=== PATIENT | female | born 1955 | race African-American/Black ===

== ENCOUNTER 2019-06-27 15:15 | Inpatient (IN) | payer OTHER ==
[2019-06-27 18:18] VITALS: BMI 24.1
--- NOTE | 2019-06-27 19:50 | HP ---
CIWA Score - Admission Criteria [facility] Guidelines: Admission for Medically Managed Detox: Requires at least one of the followin. CIWA greater than 12 2. Seizures within the past 24 hours 3. Delirium tremens within the past 24 hours 4. Hallucinations within the past 24 hours 5. Acute intervention needed for co occurring medical disorder 6. Acute intervention needed for co occurring psychiatric disorder 7. Severe withdrawal that cannot be handled at a lower level of care (continued vomiting, continued diarrhea, abnormal vital signs) requiring intravenous medication and/or fluids 8. Admission ROS [facility] Chief Complaint: c/o withdrawal sx's. seeking alcohol detox Allergies/Adverse Reactions: Allergies Allergy/AdvReac Type Severity Reaction Status Date / Time Penicillins Allergy Swelling Verified 06/27/19 18:06 History of Present Illness: here for alcohol detox. client is referred by a friend. last detox 5 years ago at [facility]. reports daily alcohol intake. last intake this morning. now presents with c/o withdrawal sx's. 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 denies black outs, seizures, avh. addiction started at the age of 17. denies any significant period of clean time this year. reports unable to stop drinking due to withdrawal sx's. lives alone, retired, denies legals Exam Limitations: No Limitations - Ebola screening Have you traveled outside of the country in the last 21 days: No Have you had contact with anyone from an Ebola affected area: No Have you been sick,other than usual withdrawal symptoms: No Do you have a fever: No - Review of Systems Constitutional: Loss of Appetite, Malaise (chronic), Night Sweats, Changes in sleep EENT: reports: Blurred Vision (corrective lenses), Other (no teeth) Respiratory: reports: SOB with Exertion (asthma/ copd) Cardiac: reports: No Symptoms Reported GI: reports: Constipated, Poor Appetite, Poor Fluid Intake : reports: No Symptoms Reported Musculoskeletal: reports: Back Pain (chronic, scolioisis, bulging slipped, ao of the spine) Integumentary: reports: No Symptoms Reported Neuro: reports: No Symptoms reported Endocrine: reports: No Symptoms Reported Hematology: reports: No Symptoms Reported Other Systems: Reviewed and Negative Patient History - Patient Medical History Hx Anemia: No Hx Asthma: Yes Hx Chronic Obstructive Pulmonary Disease (COPD): Yes Hx Cancer: No Hx Cardiac Disorders: No Hx Congestive Heart Failure: No Hx Hypertension: Yes Hx Hypercholesterolemia: No Hx Pacemaker: No HX Cerebrovascular Accident: No Hx Seizures: No Hx Dementia: No Hx Diabetes: No Hx Gastrointestinal Disorders: Yes (gerd) Hx Liver Disease: Yes (hep c- tx'ed) Hx Genitourinary Disorders: Yes (fibromyaglia) Hx Sexually Transmitted Disorders: No Hx Renal Disease (ESRD): No Hx Thyroid Disease: No Hx Human Immunodeficiency Virus (HIV): Yes (dx 2013 via heterosexually- no med mgmt) Hx Hepatitis C: Yes Hx Depression: Yes Hx Suicide Attempt: No Hx Bipolar Disorder: No Hx Schizophrenia: No Other Medical History: anxiety - Patient Surgical History Past Surgical History: Yes Hx Appendectomy: Yes Hx Orthopedic Surgery: Yes (left ankle fx with hardware) Hx Hysterectomy: Yes Anesthesia Reaction: No - PPD History Previous Implant?: Yes Documented Results: Negative w/o proof Implanted On Prior [facility] Admission?: No PPD to be Administered?: Yes - Reproductive History Patient is a Female of Child Bearing Age (11 -55 yrs old): No LMP comment: samaria 31 y.o. Patient : No - Smoking Cessation Smoking history: Current every day smoker Have you smoked in the past 12 months: Yes Aproximately how many cigarettes per day: 10 Cigars Per Day: 0 Hx Chewing Tobacco Use: No Initiated information on smoking cessation: Yes 'Breaking Loose' booklet given: 06/27/19 - Substance & Tx. History Hx Alcohol Use: Yes Hx Substance Use: Yes Substance Use Type: Alcohol, Cocaine, Marijuana, Prescribed (xanax) Hx Substance Use Treatment: Yes (aci) - Substances abused Cocaine Other (specify): crack Substance route: Smoking Frequency: Daily Amount used: 300 dollars Age of first use: 21 Date of last use: 06/26/19 Alcohol Substance route: Oral Frequency: Daily Amount used: 1 bottle of liqour or 3 6 packs of beer. Age of first use: 17 Date of last use: 06/27/19 Marijuana/Hashish Substance route: Oral Frequency: Daily Amount used: 25 dollars Age of first use: 14 Date of last use: 06/26/19 Admission Physical Exam [facility] - Vital Signs Vital Signs: Vital Signs - 24 hr 06/27/19 18:05 Temperature 98.3 F Pulse Rate 99 H Respiratory 16 Rate Blood Pressure 109/72 - Physical General Appearance: Yes: Mild Distress, Tremorous (felt), Anxious HEENTM: Yes: EOMI, Normocephalic, Normal Voice, JANY, Pharynx Normal, Other ( edentulous) Respiratory: Yes: Chest Non-Tender, Decreased Breath Sounds, No Respiratory Distress, No Accessory Muscle Use, Wheezing Neck: Yes: No masses,lesions,Nodules, Supple Breast: Yes: Breasts Symetrical Cardiology: Yes: Regular Rate, S1, S2, Tachycardia Abdominal: Yes: Normal Bowel Sounds, Soft, Distended Genitourinary: Yes: Within Normal Limits (no c/o offered) Back: Yes: Other (slight s curve of spine) Extremities: Yes: Normal Inspection, Non-Tender, Tremors (felt) Neurological: Yes: Fully Oriented, Alert, Motor Strength 5/5, Depressed Affect Integumentary: Yes: Dry, Warm Lymphatic: Yes: Within Normal Limits - Diagnostic (1) Alcohol dependence with withdrawal, uncomplicated Current Visit: Yes Status: Acute (2) Cocaine dependence, uncomplicated Current Visit: Yes Status: Acute (3) Cannabis dependence, uncomplicated Current Visit: Yes Status: Acute (4) Nicotine dependence Current Visit: Yes Status: Chronic Qualifiers: Nicotine product type: cigarettes Substance use status: uncomplicated Qualified Code(s): F17.210 - Nicotine dependence, cigarettes, uncomplicated (5) Asthma Current Visit: Yes Status: Acute Qualifiers: Asthma severity: mild Asthma persistence: intermittent Asthma complication type: uncomplicated Qualified Code(s): J45.20 - Mild intermittent asthma, uncomplicated (6) COPD (chronic obstructive pulmonary disease) Current Visit: Yes Status: Acute (7) HTN (hypertension) Current Visit: Yes Status: Chronic Qualifiers: Hypertension type: essential hypertension Qualified Code(s): I10 - Essential (primary) hypertension (8) GERD (gastroesophageal reflux disease) Current Visit: Yes Status: Chronic Qualifiers: Esophagitis presence: esophagitis presence not specified Qualified Code(s) : K21.9 - Gastro-esophageal reflux disease without esophagitis (9) Fibromyalgia Current Visit: Yes Status: Chronic (10) History of hepatitis C Current Visit: Yes Status: Chronic (11) HIV (human immunodeficiency virus infection) Current Visit: Yes Status: Chronic Qualifiers: HIV symptom status: unspecified Qualified Code(s): B20 - Human immunodeficiency virus [HIV] disease (12) Alcohol-induced mood disorder Current Visit: Yes Status: Acute (13) Depressed affect Current Visit: Yes Status: Acute (14) Constipation Current Visit: Yes Status: Acute (15) At risk for dehydration due to poor fluid intake Current Visit: Yes Status: Acute (16) Skin turgor poor Current Visit: Yes Status: Acute Cleared for Admission S - Detox or Rehab [facility] Level of Care: Medically Managed Claeared for Rehab Admission: No Breathalyzer - Breathalyzer Breathalyzer: 0 Urine Drug Screen - Test Device Lot number: [id number] Expiration date: 03/07/21 - Control Is test valid?: Yes - Results Drug screen NEGATIVE: No Urine drug screen results: THC-Marijuana, DIDI-Cocaine, BZO-Benzodiazepines Inpatient Rehab Admission - Rehab Decision to Admit Inpatient rehab admission?: No
[2019-06-27] MEDS ORDERED: ACETAMINOPHEN 325 MG TABLET (FP) PO PRN ×2 (20:03)
[2019-06-27] MEDS ORDERED: hydrOXYzine PAMOATE 25 MG CAPSULE (FP) PO PRN (20:03)
[2019-06-27] MEDS ORDERED: MAGNESIUM CITRATE 300 ML BOTTLE PO PRN (20:03)
[2019-06-27] MEDS ORDERED: IBUPROFEN 400 MG TABLET (FP) PO PRN (20:03)
[2019-06-27] MEDS ORDERED: ONDANSETRON *ODT* 4 MG TABLET SL PRN (20:03)
[2019-06-27] MEDS ORDERED: BISMUTH SUBSALICYLATE 524 MG/30 ML UD PO PRN (20:03)
[2019-06-27] MEDS ORDERED: MAG HYDROX/AL HYDROX/SIMETH 30 ML UNIT-DOSE CUP PO PRN (20:03)
[2019-06-27] MEDS ORDERED: METHOCARBAMOL 500 MG TABLET PO PRN (20:03)
[2019-06-27] MEDS ORDERED: MENTHOL/PHENOL 1 EACH UD MM PRN (20:03)
[2019-06-27] MEDS ORDERED: NICOTINE POLACRILEX 2 MG GUM BUC PRN (20:03)
[2019-06-27] MEDS ORDERED: guaiFENesin 200 MG/10 ML 10 ML UNIT-DOSE CUPS PO PRN (20:03)
[2019-06-27] MEDS ORDERED: P-EPHED 60MG/TRIPROLIDI 2.5MG TABLET PO PRN (20:03)
[2019-06-27] MEDS ORDERED: MAGNESIUM HYDROX 2400MG/30ML ORAL SUSPENSION 30 ML CUP PO PRN (20:03)
[2019-06-27] MEDS ORDERED: DICYCLOMINE HCL 10 MG CAPSULE PO PRN (20:03)
[2019-06-27] MEDS: diazePAM 5 MG TABLET PO SCH (21:45)
[2019-06-27] MEDS: amLODIPine BESYLATE 10 MG TABLET (FP) PO SCH (21:45)
[2019-06-27] MEDS: THIAMINE HCL 100 MG TABLET (FP) PO SCH (21:45)
[2019-06-27] MEDS ORDERED: FLUTICASONE SALMETEROL PO SCH (22:00)
[2019-06-27] MEDS: MELATONIN 5 MG TABLETS PO PRN (22:29)
[2019-06-28] MEDS: diazePAM 5 MG TABLET PO SCH ×3 (06:16→21:34)
[2019-06-28 09:42] LABS: HEMATOCRIT 35.9 % (32.4-45.2); HEMOGLOBIN 12.1 GM/dL (10.7-15.3); MCHC 33.6 g/dl (32.0-36.0); MEAN CELL VOLUME 89.4 fl (80-96); MEAN PLT VOLUME 7.8 fl (7.5-11.1); PLATELET COUNT 223 K/MM3 (134-434); RBC 4.02 M/mm3 (3.60-5.2); WHITE BLOOD COUNT 5.1 K/mm3 (4.0-10.0)
[2019-06-28 10:11] LABS: ALBUMIN 2.9 g/dl (3.4-5.0); BILIRUBIN,TOTAL 0.3 mg/dL (0.2-1); BLOOD UREA NITROGEN 19.4 mg/dL (7-18); CALCIUM 8.6 mg/dL (8.5-10.1); TOT PROT 9.7 g/dl (6.4-8.2)
--- NOTE | 2019-06-28 10:22 | CONSULT ---
[facility] Psychiatric Consult - Data Date of interview: 06/28/19 Admission source: [facility] Identifying data: Patient is a 63 year old female, mother of two, retired (worked for the [employer]), domiciled, and is supported by [employer] and part of her early nursing home money. This is patient's first admission to detox. Patient admitted to for alcohol dependence. Substance Abuse History: - Smoking Cessation. Smoking history: Current every day smoker. Have you smoked in the past 12 months: Yes. Aproximately how many cigarettes per day: 10. Cigars Per Day: 0. Hx Chewing Tobacco Use: No. Initiated information on smoking cessation: Yes. 'Breaking Loose' booklet given : 06/27/19. - Substance & Tx. History. Hx Alcohol Use: Yes. Hx Substance Use : Yes. Substance Use Type: Alcohol, Cocaine, Marijuana, Prescribed (xanax). Hx Substance Use Treatment: Yes (aci). - Substances abused. Cocaine. Other (specify): crack. Substance route: Smoking. Frequency: Daily. Amount used: 300 dollars. Age of first use: 21. Date of last use: 06/26/19. Alcohol. Substance route: Oral. Frequency: Daily. Amount used: 1 bottle of liqour or 3 6 packs of beer. Age of first use: 17. Date of last use: . Marijuana/Hashish. Substance route: Oral. Frequency: Daily. Amount used: 25 dollars. Age of first use: 14. Date of last use: 06/26/19 Medical History: Asthma, GERD, Hep C (treated), HIV Psychiatric History: Patient denies history of psychiatric hospitalizations, outpatient care, and suicide attempt. Patient reports history of anxiety and depression secondary to loneliness. States that completing detox and rehab will help her tremendously. Reports being prescribed xanax 1mg daily + Ambien 10mg HS by her PCP (although reports not taking ambien. reports taking melatonin instead). At present patient reports stable mood. Patient reports motivation to complete detox and continue treatment in rehab. Physical/Sexual Abuse/Trauma History: denies. Mental Status Exam - Mental Status Exam Alert and Oriented to: Time, Place, Person Cognitive Function: Good Patient Appearance: Well Groomed Mood: Euthymic Affect: Mood Congruent Patient Behavior: Appropriate, Cooperative Speech Pattern: Clear Voice Loudness: Normal Thought Process: Intact, Goal Oriented Thought Disorder: Not Present Hallucinations: Denies Suicidal Ideation: Denies Homicidal Ideation: Denies Insight/Judgement: Poor Sleep: Fair Appetite: Fair Muscle strength/Tone: Normal Gait/Station: Normal Psychiatric Findings - Problem List ([place] 1, 2,3) (1) Alcohol dependence with withdrawal, uncomplicated Current Visit: Yes Status: Acute (2) Cannabis dependence, uncomplicated Current Visit: Yes Status: Acute (3) Cocaine dependence, uncomplicated Current Visit: Yes Status: Acute - Initial Treatment Plan Initial Treatment Plan: Psychoeducation provided. Detoxification in progress. Observation.
[2019-06-28] MEDS: LOSARTAN POTASSIUM 25 MG TABLET PO SCH (10:45)
[2019-06-28] MEDS: NICOTINE 14 MG/24 HOURS TOPICAL PATCH TD SCH (10:46)
[2019-06-28] MEDS: PRENATAL VITAMINS W/ FOLIC ACID TABLET (FP) PO SCH (10:47)
[2019-06-28] MEDS: ALBUTEROL SO4 8 GM HFA INHALER IH PRN (10:49)
[2019-06-28] MEDS: BUDESONIDE/FORMETEROL FUMARATE 160/4.5 mcg INHALER IH SCH ×2 (10:50→21:33)
--- NOTE | 2019-06-28 11:30 | PN ---
[facility] CIWA - CIWA Score Nausea/Vomitin-Mild Nausea/No Vomiting Muscle Tremors: 2 Anxiety: 3 Agitation: 2 Paroxysmal Sweats: 3 Orientation: 0-Oriented Tacttile Disturbances: 1-Very Mild Itch/Numbness Auditory Disturbances: 0-None Visual Disturbances: 0-None Headache: 0-None Present CIWA-Ar Total Score: 12 S Progress Note (SOAP) Subjective: 63 years old female admitted on 06/27/19 for alcohol withdrawal sx management treated with valium detox regimen patient ate breakfast tolerated food and fluid well ambulating on hallway Objective: 06/28/19 11:32 Vital Signs Temperature 96.1 F L 06/28/19 09:10 Pulse Rate 92 H 06/28/19 09:10 Respiratory Rate 16 06/28/19 09:10 Blood Pressure 126/77 06/28/19 09:10 O2 Sat by Pulse Oximetry (%) Laboratory Last Values WBC 5.1 K/mm3 (4.0-10.0) 06/28/19 08:00 RBC 4.02 M/mm3 (3.60-5.2) 06/28/19 08:00 Hgb 12.1 GM/dL (10.7-15.3) 06/28/19 08:00 Hct 35.9 % (32.4-45.2) 06/28/19 08:00 MCV 89.4 fl (80-96) 06/28/19 08:00 MCH 30.0 pg (25.7-33.7) 06/28/19 08:00 MCHC 33.6 g/dl (32.0-36.0) 06/28/19 08:00 RDW 14.0 % (11.6-15.6) 06/28/19 08:00 Plt Count 223 K/MM3 (134-434) 06/28/19 08:00 MPV 7.8 fl (7.5-11.1) 06/28/19 08:00 Sodium 135 mmol/L (136-145) L 06/28/19 08:00 Potassium 4.0 mmol/L (3.5-5.1) 06/28/19 08:00 Chloride 104 mmol/L (98-107) 06/28/19 08:00 Carbon Dioxide 29 mmol/L (21-32) 06/28/19 08:00 Anion Gap 3 MMOL/L (8-16) L 06/28/19 08:00 BUN 19.4 mg/dL (7-18) H 06/28/19 08:00 Creatinine 1.0 mg/dL (0.55-1.3) 06/28/19 08:00 Est GFR (CKD-EPI)AfAm 69.92 06/28/19 08:00 Est GFR (CKD-EPI)NonAf 60.33 06/28/19 08:00 Random Glucose 130 mg/dL (74-106) H 06/28/19 08:00 Calcium 8.6 mg/dL (8.5-10.1) 06/28/19 08:00 Total Bilirubin 0.3 mg/dL (0.2-1) 06/28/19 08:00 AST 53 U/L (15-37) H 06/28/19 08:00 ALT 72 U/L (13-61) H 06/28/19 08:00 Alkaline Phosphatase 94 U/L (45-117) 06/28/19 08:00 Total Protein 9.7 g/dl (6.4-8.2) H 06/28/19 08:00 Albumin 2.9 g/dl (3.4-5.0) L 06/28/19 08:00 POC Urine HCG, Qual Negative 06/27/19 20:10 lab noted 06/28/19 11:32 glucose elevation fasting glucose 06/28/19 11:34 Assessment: 06/28/19 11:34 alcohol withdrawal sx Plan: continue valium detox regimen
[2019-06-28] MEDS: diazePAM 5 MG TABLET PO PRN (17:41)
[2019-06-28] MEDS: THIAMINE HCL 100 MG TABLET (FP) PO SCH (21:32)
[2019-06-28] MEDS: amLODIPine BESYLATE 10 MG TABLET (FP) PO SCH (21:34)
[2019-06-28] MEDS: MELATONIN 5 MG TABLETS PO PRN (21:35)
[2019-06-28 22:33] LABS: PH,URINE 7.5 (5.0-8.0); URINE APPEARANCE CLEAR; URINE BILIRUBIN NEGATIVE (NEGATIVE); URINE COLOR YELLOW; URINE GLUCOSE (UA) NEGATIVE (NEGATIVE); URINE KETONE NEGATIVE (NEGATIVE); URINE LEUK ESTERASE NEGATIVE (NEGATIVE); URINE NITRITE NEGATIVE (NEGATIVE); URINE PROTEIN NEGATIVE (NEGATIVE); URINE UROBILINOGEN 0.2 mg/dL (0.2-1.0)
[2019-06-29] MEDS: diazePAM 5 MG TABLET PO SCH ×2 (06:13→17:12)
[2019-06-29] MEDS: LOSARTAN POTASSIUM 25 MG TABLET PO SCH (10:17)
[2019-06-29] MEDS: PRENATAL VITAMINS W/ FOLIC ACID TABLET (FP) PO SCH (10:17)
[2019-06-29] MEDS: NICOTINE 14 MG/24 HOURS TOPICAL PATCH TD SCH (10:19)
[2019-06-29] MEDS: BUDESONIDE/FORMETEROL FUMARATE 160/4.5 mcg INHALER IH SCH ×2 (10:19→22:16)
--- NOTE | 2019-06-29 12:18 | EKG ---
Test Reason : Blood Pressure : / mmHG Vent. Rate : 092 BPM Atrial Rate : 092 BPM P-R Int : 112 ms QRS Dur : 080 ms QT Int : 344 ms P-R-T Axes : -04 007 -34 degrees QTc Int : 425 ms NORMAL SINUS RHYTHM MINIMAL VOLTAGE CRITERIA FOR LVH, MAY BE NORMAL VARIANT INFERIOR INFARCT , AGE UNDETERMINED ABNORMAL ECG NO PREVIOUS ECGS AVAILABLE Confirmed by WILDER SCHMITT MD ([id number]) on 06/29/2019 12:18:03 PM Referred By: Confirmed By:WILDER SCHMITT MD
--- NOTE | 2019-06-29 15:10 | PN ---
S CIWA - CIWA Score Nausea/Vomitin-Mild Nausea/No Vomiting Muscle Tremors: 1-None Visible, but [place] Anxiety: 2 Agitation: 2 Paroxysmal Sweats: No Perspiration Orientation: 0-Oriented Tacttile Disturbances: 1-Very Mild Itch/Numbness Auditory Disturbances: 0-None Visual Disturbances: 0-None Headache: 2-Mild CIWA-Ar Total Score: 9 BHS Progress Note (SOAP) Subjective: alert,irritable,anxious,interrupted sleep Objective: 06/29/19 15:09 Vital Signs Temperature 97.2 F L 06/29/19 13:46 Pulse Rate 86 06/29/19 13:46 Respiratory Rate 18 06/29/19 13:46 Blood Pressure 120/78 06/29/19 13:46 O2 Sat by Pulse Oximetry (%) Assessment: 06/29/19 15:09 withdrawal symptom Plan: continue detox valium regimen,discharge in am
[2019-06-29] MEDS: ALBUTEROL SO4 8 GM HFA INHALER IH PRN (17:13)
[2019-06-29] MEDS: amLODIPine BESYLATE 10 MG TABLET (FP) PO SCH (22:16)
[2019-06-29] MEDS: THIAMINE HCL 100 MG TABLET (FP) PO SCH (22:16)
[2019-06-29] MEDS: MELATONIN 5 MG TABLETS PO PRN (22:17)
[2019-06-29] MEDS: diazePAM 5 MG TABLET PO PRN (22:18)
[2019-06-30] MEDS ORDERED: diazePAM 5 MG TABLET PO ONE (06:00)
[2019-06-30 09:30] VITALS: BP 119/75; PULSE 85; TEMP 97.2
--- NOTE | 2019-06-30 13:39 | DS ---
[facility] Detox Discharge Summary Admission Date: 06/27/19 Discharge Date: 06/30/19 - History Present History: Alcohol Dependence, Cannabis Dependence, Cocaine Dependence Additional Comments: Pt is medically cleared and is discharged today. Pt completed her detox protocol. Pt is instructed to follow-up with [facility] outpatient program and also to follow-up with her PMD. Pt verbalized understanding. Pt is alert and oriented x3 and in no respiratory distress. Pertinent Past History: H/O asthma, HTN, cocaine, cannabis, and alcohol use disorder. - Physical Exam Results Vital Signs: Vital Signs Temperature 97.2 F L 06/30/19 09:30 Pulse Rate 85 06/30/19 09:30 Respiratory Rate 18 06/30/19 09:30 Blood Pressure 119/75 06/30/19 09:30 O2 Sat by Pulse Oximetry (%) Vital Signs 06/30/19 06/30/19 06:50 09:30 Temperature 97.1 F L 97.2 F L Pulse Rate 73 85 Respiratory 16 18 Rate Blood Pressure 124/82 119/75 Laboratory Last Values WBC 5.1 K/mm3 (4.0-10.0) 06/28/19 08:00 RBC 4.02 M/mm3 (3.60-5.2) 06/28/19 08:00 Hgb 12.1 GM/dL (10.7-15.3) 06/28/19 08:00 Hct 35.9 % (32.4-45.2) 06/28/19 08:00 MCV 89.4 fl (80-96) 06/28/19 08:00 MCH 30.0 pg (25.7-33.7) 06/28/19 08:00 MCHC 33.6 g/dl (32.0-36.0) 06/28/19 08:00 RDW 14.0 % (11.6-15.6) 06/28/19 08:00 Plt Count 223 K/MM3 (134-434) 06/28/19 08:00 MPV 7.8 fl (7.5-11.1) 06/28/19 08:00 Sodium 135 mmol/L (136-145) L 06/28/19 08:00 Potassium 4.0 mmol/L (3.5-5.1) 06/28/19 08:00 Chloride 104 mmol/L (98-107) 06/28/19 08:00 Carbon Dioxide 29 mmol/L (21-32) 06/28/19 08:00 Anion Gap 3 MMOL/L (8-16) L 06/28/19 08:00 BUN 19.4 mg/dL (7-18) H 06/28/19 08:00 Creatinine 1.0 mg/dL (0.55-1.3) 06/28/19 08:00 Est GFR (CKD-EPI)AfAm 69.92 06/28/19 08:00 Est GFR (CKD-EPI)NonAf 60.33 06/28/19 08:00 Random Glucose 130 mg/dL (74-106) H 06/28/19 08:00 Fasting Glucose 119 mg/dL (74-106) H 06/29/19 08:00 Calcium 8.6 mg/dL (8.5-10.1) 06/28/19 08:00 Total Bilirubin 0.3 mg/dL (0.2-1) 06/28/19 08:00 AST 53 U/L (15-37) H 06/28/19 08:00 ALT 72 U/L (13-61) H 06/28/19 08:00 Alkaline Phosphatase 94 U/L (45-117) 06/28/19 08:00 Total Protein 9.7 g/dl (6.4-8.2) H 06/28/19 08:00 Albumin 2.9 g/dl (3.4-5.0) L 06/28/19 08:00 Urine Color Yellow 06/28/19 18:33 Urine Appearance Clear 06/28/19 18: Urine pH 7.5 (5.0-8.0) 06/28/19 18:33 Ur Specific [place] 1.007 (1.010-1.035) L 06/28/19 18:33 Urine Protein Negative (NEGATIVE) 06/28/19 18:33 Urine Glucose (UA) Negative (NEGATIVE) 06/28/19 18: Urine Ketones Negative (NEGATIVE) 06/28/19 18:33 Urine Blood Negative (NEGATIVE) 06/28/19 18:33 Urine Nitrite Negative (NEGATIVE) 06/28/19 18: Urine Bilirubin Negative (NEGATIVE) 06/28/19 18:33 Urine Urobilinogen 0.2 mg/dL (0.2-1.0) 06/28/19 18:33 Ur Leukocyte Esterase Negative (NEGATIVE) 06/28/19 18:33 POC Urine HCG, Qual Negative 06/27/19 20:10 RPR Titer Nonreactive (NONREACTIVE) 06/28/19 08:00 Labs noted. Pertinent Admission Physical Exam Findings: withdrawal symptoms. - Treatment Hospital Course: Detox Protocol Followed, Detoxed Safely, Responded well, Discharged Condition Good - Medication Discharge Medications: Ambulatory Orders Albuterol Sulfate Inhaler - 2 puff PO Q4HWA PRN 06/27/19 Amlodipine Besylate [Norvasc -] 10 mg PO DAILY 06/27/19 Fluticasone-Salmeterol 500-50 1 puff PO BID 06/27/19 Losartan Potassium 25 mg PO DAILY 06/27/19 - Diagnosis (1) Alcohol dependence with withdrawal, uncomplicated Status: Acute (2) Asthma Status: Acute Qualifiers: Asthma severity: mild Asthma persistence: intermittent Asthma complication type: uncomplicated Qualified Code(s): J45.20 - Mild intermittent asthma, uncomplicated (3) COPD (chronic obstructive pulmonary disease) Status: Acute (4) Cannabis dependence, uncomplicated Status: Acute (5) Cocaine dependence, uncomplicated Status: Acute (6) Fibromyalgia Status: Chronic (7) HIV (human immunodeficiency virus infection) Status: Chronic Qualifiers: HIV symptom status: unspecified Qualified Code(s): B20 - Human immunodeficiency virus [HIV] disease (8) HTN (hypertension) Status: Chronic Qualifiers: Hypertension type: essential hypertension Qualified Code(s): I10 - Essential (primary) hypertension (9) History of hepatitis C Status: Chronic (10) Nicotine dependence Status: Chronic Qualifiers: Nicotine product type: cigarettes Substance use status: uncomplicated Qualified Code(s): F17.210 - Nicotine dependence, cigarettes, uncomplicated - AMA Did Patient Leave Against Medical Advice: No [facility] CIWA - CIWA Score Nausea/Vomitin-No Nausea/No Vomiting Muscle Tremors: None Anxiety: 1-Mildly Anxious Agitation: 0-Normal Activity Paroxysmal Sweats: 2 Orientation: 0-Oriented Tacttile Disturbances: 0-None Auditory Disturbances: 0-None Visual Disturbances: 0-None Headache: 0-None Present CIWA-Ar Total Score: 3
== END 2019-06-30 10:04 | disposition other institution (70) | DRG 774 ==
LOC: YASAS 15:15 → Y3N 21:03
PROVIDERS: ADMIT Allergy & Immunology; ATTEND Allergy & Immunology
PROC: HZ2ZZZZ Detoxification Services for Substance Abuse Treatment (ICD-10-PCS; principal; 2019-06-27)
DX: F10.230 Alcohol dependence with withdrawal, uncomplicated (principal); F14.20 Cocaine dependence, uncomplicated; F12.20 Cannabis dependence, uncomplicated; F17.210 Nicotine dependence, cigarettes, uncomplicated; F19.24 Other psychoactive substance dependence with psychoactive substance-induced mood disorder; F32.9 Major depressive disorder, single episode, unspecified; F41.8 Other specified anxiety disorders; Z21 Asymptomatic human immunodeficiency virus [HIV] infection status; I10 Essential (primary) hypertension; J45.20 Mild intermittent asthma, uncomplicated; J44.9 Chronic obstructive pulmonary disease, unspecified; K21.9 Gastro-esophageal reflux disease without esophagitis; M79.7 Fibromyalgia; B18.2 Chronic viral hepatitis C; R45.89 Other symptoms and signs involving emotional state; Z91.89 Other specified personal risk factors, not elsewhere classified; R23.8 Other skin changes; Z88.0 Allergy status to penicillin
CPT/HCPCS: 36415; 80053; 81003; 81025; 82947; 85027; 86593; 93005; 93010

== ENCOUNTER 2019-10-10 10:25 | Inpatient (IN) | payer OTHER ==
[2019-10-10 11:09] VITALS: BMI 25.2
--- NOTE | 2019-10-10 11:44 | HP ---
CIWA Score Nausea/Vomitin Muscle Tremors: 3 Anxiety: 3 Agitation: 3 Paroxysmal Sweats: 2 Orientation: 0-Oriented Tacttile Disturbances: 0-None Auditory Disturbances: 0-None Visual Disturbances: 0-None Headache: 1-Very Mild CIWA-Ar Total Score: 14 - Admission Criteria OASAS Guidelines: Admission for Medically Managed Detox: Requires at least one of the followin. CIWA greater than 12 2. Seizures within the past 24 hours 3. Delirium tremens within the past 24 hours 4. Hallucinations within the past 24 hours 5. Acute intervention needed for co occurring medical disorder 6. Acute intervention needed for co occurring psychiatric disorder 7. Severe withdrawal that cannot be handled at a lower level of care (continued vomiting, continued diarrhea, abnormal vital signs) requiring intravenous medication and/or fluids 8. Admitting History and Physical - Admission Chief Complaint: " I want ot get rid of my alcohol problem." History of Present Illness: 63 year old female with history of alcohol dependence with withdrawals. She was last here in 06/27- rehab at [facility] relapsed 3 months thereafter. Alcohol: 6 pack 24 oz beers daily, denies seizures, blackout but does need an eye social worker psychiatric every day. Crack: $50-100 daily smokes, started age 21 and last used 10/10/19 at 7:30AM Nicotine: 3 ciggs per day, started age 17 marijuana: 4 blunts daily, started age 14 and last used yesterday. PMH: Insomnia, Fibromyalgia, HIV, Scholiosis, Arthritis, HCV untreated going to get treated. Psurg: Hysterectomy, appendectomy and L ankle repair with hardware. Psych: Anxiety Depression Domiciled in own apartment and has no legal issues pendig. She does meet criteria detox due to multiple co-morbid disorder and psychiatric co-morbidity. She also has poor insight into her disease. History Source: Patient Limitations to Obtaining History: No Limitations - Smoking History Smoking history: Current every day smoker Have you smoked in the past 12 months: Yes Aproximately how many cigarettes per day: 3 - Alcohol/Substance Use Hx Alcohol Use: Yes Admission ROS S - HPI Allergies/Adverse Reactions: Allergies Allergy/AdvReac Type Severity Reaction Status Date / Time Penicillins Allergy Swelling Verified 10/10/19 11:00 Patient History - Patient Medical History Hx Anemia: No Hx Asthma: Yes Hx Chronic Obstructive Pulmonary Disease (COPD): Yes Hx Cancer: No Hx Cardiac Disorders: No Hx Congestive Heart Failure: No Hx Hypertension: Yes Hx Hypercholesterolemia: No Hx Pacemaker: No HX Cerebrovascular Accident: No Hx Seizures: No Hx Dementia: No Hx Diabetes: No Hx Gastrointestinal Disorders: Yes (gerd) Hx Liver Disease: Yes (hep c- tx'ed) Hx Genitourinary Disorders: Yes (fibromyaglia) Hx Sexually Transmitted Disorders: No Hx Renal Disease (ESRD): No Hx Thyroid Disease: No Hx Human Immunodeficiency Virus (HIV): Yes (dx 2013 via heterosexually- no med mgmt) Hx Hepatitis C: Yes Hx Depression: Yes Hx Suicide Attempt: No Hx Bipolar Disorder: No Hx Schizophrenia: No - Patient Surgical History Past Surgical History: Yes Hx Neurologic Surgery: No Hx Cataract Extraction: No Hx Cardiac Surgery: No Hx Lung Surgery: No Hx Breast Surgery: No Hx Breast Biopsy: No Hx Abdominal Surgery: No Hx Appendectomy: Yes Hx Cholecystectomy: No Hx Genitourinary Surgery: No Hx Section: No Hx Orthopedic Surgery: Yes (left ankle fx with hardware) Hx Hysterectomy: Yes Anesthesia Reaction: No - PPD History Previous Implant?: Yes Documented Results: Negative w/proof Implanted On Prior R Admission?: Yes Date: 06/29/19 Results: negative PPD to be Administered?: No - Smoking Cessation Smoking history: Current every day smoker Have you smoked in the past 12 months: Yes Aproximately how many cigarettes per day: 3 Cigars Per Day: 0 Hx Chewing Tobacco Use: No Initiated information on smoking cessation: Yes 'Breaking Loose' booklet given: 10/10/19 - Substances abused Alcohol Substance route: Oral Frequency: Daily Amount used: 6 CANS OF BEER Age of first use: 17 Date of last use: 10/09/19 Cocaine Substance route: Smoking Frequency: Daily Amount used: $50-100 Age of first use: 21 Date of last use: 10/10/19 Marijuana/Hashish Substance route: Smoking Frequency: Daily Amount used: 4 BLUNTS Age of first use: 14 Date of last use: 10/09/19 Admission Physical Exam [facility] - Vital Signs Vital Signs: Vital Signs - 24 hr 10/10/19 11:04 Temperature 98.7 F Pulse Rate 104 H Respiratory 18 Rate Blood Pressure 148/97 - Physical General Appearance: Yes: No Apparent Distress, Nourished, Appropriately Dressed HEENTM: Yes: EOMI, Hearing grossly Normal, Normal ENT Inspection, Normocephalic , Normal Voice, JANY, Pharynx Normal, Tm's normal Respiratory: Yes: Chest Non-Tender, Lungs Clear, Normal Breath Sounds, No Respiratory Distress, No Accessory Muscle Use Neck: Yes: No masses,lesions,Nodules, Supple, Trachea in good position Breast: Yes: Breast Exam Deferred Cardiology: Yes: Regular Rhythm, S1, S2, Tachycardia Abdominal: Yes: Flat, Soft, Decreased BS Genitourinary: Yes: Within Normal Limits Back: Yes: Normal Inspection Musculoskeletal: Yes: full range of Motion, Gait Steady, Pelvis Stable Extremities: Yes: Normal Capillary Refill, Normal Inspection, Normal Range of Motion, Non-Tender, Other (generalized tenderness due to fibromyalgia) Neurological: Yes: parker II-XII NML intact, Fully Oriented, Alert, Motor Strength 5/5, Normal Mood/Affect, Normal Response Integumentary: Yes: Normal Color, Warm Lymphatic: Yes: Within Normal Limits - Diagnostic (1) Alcohol dependence with withdrawal, uncomplicated Current Visit: Yes Status: Acute (2) Asthma Current Visit: Yes Status: Acute Qualifiers: Asthma severity: mild Asthma persistence: intermittent Asthma complication type: uncomplicated Qualified Code(s): J45.20 - Mild intermittent asthma, uncomplicated (3) At risk for dehydration due to poor fluid intake Current Visit: Yes Status: Acute (4) COPD (chronic obstructive pulmonary disease) Current Visit: Yes Status: Acute (5) Cannabis dependence, uncomplicated Current Visit: Yes Status: Acute (6) Cocaine dependence, uncomplicated Current Visit: Yes Status: Acute (7) Constipation Current Visit: Yes Status: Acute (8) Fibromyalgia Current Visit: Yes Status: Chronic (9) GERD (gastroesophageal reflux disease) Current Visit: Yes Status: Chronic Qualifiers: Esophagitis presence: esophagitis presence not specified Qualified Code(s) : K21.9 - Gastro-esophageal reflux disease without esophagitis (10) HIV (human immunodeficiency virus infection) Current Visit: Yes Status: Chronic Qualifiers: HIV symptom status: unspecified Qualified Code(s): B20 - Human immunodeficiency virus [HIV] disease (11) HTN (hypertension) Current Visit: Yes Status: Chronic Qualifiers: Hypertension type: essential hypertension Qualified Code(s): I10 - Essential (primary) hypertension (12) History of hepatitis C Current Visit: Yes Status: Chronic (13) Nicotine dependence Current Visit: Yes Status: Chronic Qualifiers: Nicotine product type: cigarettes Substance use status: uncomplicated Qualified Code(s): F17.210 - Nicotine dependence, cigarettes, uncomplicated Cleared for Admission [facility] - Detox or Rehab [facility] Level of Care: Medically Managed Detox Regimen/Protocol: Librium Claeared for Rehab Admission: No Screened but not Admitted - Documentation of Visit Screened but not Admitted: No Breathalyzer - Breathalyzer Breathalyzer: 0 Urine Drug Screen - Test Device Lot number: [id number] Expiration date: 07/07/21 - Control Is test valid?: Yes - Results Drug screen NEGATIVE: No Urine drug screen results: THC-Marijuana, DIDI-Cocaine, BZO-Benzodiazepines Inpatient Rehab Admission - Rehab Decision to Admit Inpatient rehab admission?: No
[2019-10-10] MEDS ORDERED: MAG HYDROX/AL HYDROX/SIMETH 30 ML UNIT-DOSE CUP PO PRN (11:49)
[2019-10-10] MEDS ORDERED: MAGNESIUM CITRATE 300 ML BOTTLE PO PRN (11:49)
[2019-10-10] MEDS ORDERED: BISMUTH SUBSALICYLATE 262 MG/15 ML BTL PO PRN (11:49)
[2019-10-10] MEDS ORDERED: MENTHOL/PHENOL 1 EACH UD MM PRN (11:49)
[2019-10-10] MEDS ORDERED: chlordiazePOXIDE HCL 25 MG CAPSULE PO PRN (11:49)
[2019-10-10] MEDS ORDERED: MAGNESIUM HYDROX 2400MG/30ML ORAL SUSPENSION 30 ML CUP PO PRN (11:49)
[2019-10-10] MEDS ORDERED: IBUPROFEN 400 MG TABLET (FP) PO PRN (11:49)
[2019-10-10] MEDS ORDERED: ACETAMINOPHEN 325 MG TABLET (FP) PO PRN ×2 (11:49)
[2019-10-10] MEDS ORDERED: METHOCARBAMOL 500 MG TABLET PO PRN (11:49)
[2019-10-10] MEDS ORDERED: ALBUTEROL SULFATE PO PRN (11:53)
[2019-10-10] MEDS ORDERED: ONDANSETRON *ODT* 4 MG TABLET SL ONE (12:26)
[2019-10-10] MEDS ORDERED: ERGOCALCIFEROL (VIT D2) 50,000 UNIT (1.25 MG) CAPSULE PO SCH (12:30)
[2019-10-10] MEDS: GABAPENTIN 300 MG CAPSULE PO SCH ×2 (13:25→22:08)
[2019-10-10] MEDS: LOSARTAN POTASSIUM 25 MG TABLET PO SCH (13:26)
[2019-10-10] MEDS: hydrOXYzine PAMOATE 25 MG CAPSULE (FP) PO SCH ×3 (13:26→22:09)
[2019-10-10] MEDS: NICOTINE 14 MG/24 HOURS TOPICAL PATCH TD SCH (13:26)
[2019-10-10] MEDS: amLODIPine BESYLATE 10 MG TABLET (FP) PO SCH (13:26)
--- NOTE | 2019-10-10 13:58 | CONSULT ---
[facility] Psychiatric Consult - Data Date of interview: 10/10/19 Admission source: [facility] Identifying data: Revisit to [facility] and admission to [address] [place] [address] for this 63 y/o AA female self-referred for detoxification treatment. ROD issues : alcohol, crack/cocaine, cannabis, nicotine. 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 Substance Abuse History: Discussed with the patient. ROD profile as follows : Smoking history: Current every day smoker. Have you smoked in the past 12 months: Yes. Aproximately how many cigarettes per day: 3. Cigars Per Day: 0. Hx Chewing Tobacco Use: No. Initiated information on smoking cessation: Yes. 'Breaking Loose' booklet given: 10/10/19. - Substances abused. Alcohol. Substance route: Oral. Frequency: Daily. Amount used: 6 CANS OF BEER. Age of first use: 17. Date of last use: 10/09/19. Cocaine. Substance route: Smoking. Frequency: Daily. Amount used: $50-100. Age of first use: 21. Date of last use: 10/10/19. Marijuana/Hashish. Substance route: Smoking. Frequency: Daily. Amount used: 4 BLUNTS. Age of first use: 14. Date of last use: 10/09/19 Medical History: Medical history is remarkable for hepatitis C, chronic insomnia, HIV infection since 2012 (not on ART medications), fibromyalgia, scoliosis, arthritis and antecedent of surgeries (hysterectomy + appendectomy + orthosurgery for fracture of left ankle : hardware in situ). Allergy to penicillins. Psychiatric History: Patient is a good and articulate historian. No reported history of psychiatric hospitalizations, OPD care or suicide attempts. Patient has been " informally " diagnosed with depression + anxiety by her primary care providers and prescribed mirtazapine + alprazolam + ambien (rejected by patient because of occurrence of parasomnia : sleepwalking) + gabapentin (fibromyalgia). Ms Bermudez denies history of suicide attempts. Physical/Sexual Abuse/Trauma History: Traumas : patient lost two husbands (first got hit by a car and never recovered from his coma + second of cancer); serious medical illnesses (contracted HIV from second ); estrangement from relatives, including own children (now adults) and grand- children; loneliness and addictions. Additional Comment: Urine drug screen results: THC-Marijuana, DIDI-Cocaine, BZO- Benzodiazepines. Noted. Mental Status Exam - Mental Status Exam Alert and Oriented to: Time, Place, Person Cognitive Function: Good Patient Appearance: Disheveled Mood: Sad, Withdrawn, Anxious Affect: Mood Congruent, Constricted Patient Behavior: Fatigued, Appropriate, Cooperative Speech Pattern: Clear, Appropriate Voice Loudness: Normal Thought Process: Intact, Goal Oriented Thought Disorder: Not Present Hallucinations: Denies Suicidal Ideation: Denies Homicidal Ideation: Denies Insight/Judgement: Fair Sleep: Poorly, Difficulty falling asleep Appetite: Fair Gait/Station: Normal Psychiatric Findings - Problem List ([place] 1, 2,3) (1) Alcohol dependence with withdrawal, uncomplicated Current Visit: Yes Status: Acute (2) Cannabis dependence, uncomplicated Current Visit: Yes Status: Acute (3) Cocaine dependence, uncomplicated Current Visit: Yes Status: Acute (4) Nicotine dependence Current Visit: Yes Status: Chronic Qualifiers: Nicotine product type: cigarettes Substance use status: uncomplicated Qualified Code(s): F17.210 - Nicotine dependence, cigarettes, uncomplicated (5) Substance induced mood disorder Current Visit: Yes Status: Chronic (6) History of depression Current Visit: Yes Status: Chronic (7) Insomnia Current Visit: Yes Status: Chronic - Initial Treatment Plan Initial Treatment Plan: Psychoeducation. Sleep hygiene. Support. Motivational counseling. Groups. AA meetings. Resumed (from [facility]) : remeron 15 mg po hs + gabapentin 600 mg po tid. Side effects/benefits of both medications are discussed, in this session, with the patient. Ms Bermudez has expressed her agreement with this plan of care. Gave her informed consent (verbal) to MD. Rain.
[2019-10-10 15:25] LABS: HEMOGLOBIN 11.7 GM/dL (10.7-15.3); MCHC 33.3 g/dl (32.0-36.0); MEAN PLT VOLUME 7.5 fl (7.5-11.1); PLATELET COUNT 286 K/MM3 (134-434); RBC 3.89 M/mm3 (3.60-5.2); RDW 14.6 % (11.6-15.6); WHITE BLOOD COUNT 5.9 K/mm3 (4.0-10.0)
[2019-10-10 15:42] LABS: BILIRUBIN,TOTAL 0.4 mg/dL (0.2-1); BLOOD UREA NITROGEN 11.2 mg/dL (7-18); CALCIUM 8.8 mg/dL (8.5-10.1); CREATININE 0.9 mg/dL (0.55-1.3); POTASSIUM 4.2 mmol/L (3.5-5.1); TOT PROT 10.6 g/dl (6.4-8.2)
[2019-10-10] MEDS: chlordiazePOXIDE HCL 25 MG CAPSULE PO SCH ×2 (17:44→22:08)
[2019-10-10] MEDS: MIRTAZAPINE 15 MG TABLET (FP) PO SCH (22:09)
[2019-10-10] MEDS: MELATONIN 5 MG TABLETS PO SCH (22:10)
[2019-10-10] MEDS: THIAMINE HCL 100 MG TABLET (FP) PO SCH (22:10)
[2019-10-10] MEDS: FLUTICASONE SALMETEROL PO SCH (22:10)
[2019-10-11] MEDS: chlordiazePOXIDE HCL 25 MG CAPSULE PO SCH ×4 (05:58→22:26)
[2019-10-11] MEDS: GABAPENTIN 300 MG CAPSULE PO SCH ×3 (05:58→22:26)
[2019-10-11] MEDS: hydrOXYzine PAMOATE 25 MG CAPSULE (FP) PO SCH ×5 (05:59→22:26)
[2019-10-11] MEDS ORDERED: NICOTINE 7 MG/24 HOURS TOPICAL PATCH TD SCH (10:00)
[2019-10-11] MEDS: LOSARTAN POTASSIUM 25 MG TABLET PO SCH (10:08)
[2019-10-11] MEDS: FLUTICASONE SALMETEROL PO SCH ×2 (10:09→22:29)
[2019-10-11] MEDS: NICOTINE 14 MG/24 HOURS TOPICAL PATCH TD SCH (10:10)
[2019-10-11] MEDS: amLODIPine BESYLATE 10 MG TABLET (FP) PO SCH (10:10)
[2019-10-11] MEDS: PRENATAL VITAMINS W/ FOLIC ACID TABLET (FP) PO SCH (10:10)
[2019-10-11] MEDS: NICOTINE POLACRILEX 2 MG GUM BUC PRN (10:10)
--- NOTE | 2019-10-11 11:36 | PN ---
[facility] CIWA - CIWA Score Nausea/Vomitin-Mild Nausea/No Vomiting Muscle Tremors: 3 Anxiety: 4-Mod. Anxious/Guarded Agitation: 1-Slight > Activity Paroxysmal Sweats: 2 Orientation: 0-Oriented Tacttile Disturbances: 0-None Auditory Disturbances: 0-None Visual Disturbances: 0-None Headache: 0-None Present CIWA-Ar Total Score: 11 S Progress Note (SOAP) Subjective: 63 years old female admitted on 10/10/19 for alcohol withdrawal sx management treating with librium detox regiment feeling better today actively participates in groups and meetings Objective: 10/11/19 11:53 Vital Signs Temperature 97.8 F 10/11/19 08:30 Pulse Rate 95 H 10/11/19 08:30 Respiratory Rate 18 10/11/19 08:30 Blood Pressure 123/78 10/11/19 08:30 O2 Sat by Pulse Oximetry (%) Laboratory Last Values WBC 5.9 K/mm3 (4.0-10.0) 10/10/19 12:00 RBC 3.89 M/mm3 (3.60-5.2) 10/10/19 12:00 Hgb 11.7 GM/dL (10.7-15.3) 10/10/19 12:00 Hct 35.0 % (32.4-45.2) 10/10/19 12:00 MCV 90.0 fl (80-96) 10/10/19 12:00 MCH 30.0 pg (25.7-33.7) 10/10/19 12:00 MCHC 33.3 g/dl (32.0-36.0) 10/10/19 12:00 RDW 14.6 % (11.6-15.6) 10/10/19 12:00 Plt Count 286 K/MM3 (134-434) D 10/10/19 12:00 MPV 7.5 fl (7.5-11.1) 10/10/19 12:00 Sodium 139 mmol/L (136-145) 10/10/19 12:00 Potassium 4.2 mmol/L (3.5-5.1) 10/10/19 12:00 Chloride 108 mmol/L (98-107) H 10/10/19 12:00 Carbon Dioxide 27 mmol/L (21-32) 10/10/19 12:00 Anion Gap 4 MMOL/L (8-16) L 10/10/19 12:00 BUN 11.2 mg/dL (7-18) 10/10/19 12:00 Creatinine 0.9 mg/dL (0.55-1.3) 10/10/19 12:00 Est GFR (CKD-EPI)AfAm 79.42 10/10/19 12:00 Est GFR (CKD-EPI)NonAf 68.53 10/10/19 12:00 Random Glucose 106 mg/dL (74-106) 10/10/19 12:00 Calcium 8.8 mg/dL (8.5-10.1) 10/10/19 12:00 Total Bilirubin 0.4 mg/dL (0.2-1) 10/10/19 12:00 AST 40 U/L (15-37) H 10/10/19 12:00 ALT 67 U/L (13-61) H 10/10/19 12:00 Alkaline Phosphatase 81 U/L (45-117) 10/10/19 12:00 Total Protein 10.6 g/dl (6.4-8.2) H 10/10/19 12:00 Albumin 3.0 g/dl (3.4-5.0) L 10/10/19 12:00 RPR Titer Nonreactive (NONREACTIVE) 10/10/19 12:00 lab noted Assessment: 10/11/19 11:53 alcohol withdrawal Plan: librium regiment
--- NOTE | 2019-10-11 15:35 | PN ---
[facility] Progress Note Note: received nurse call that Ms Bermudez does not smoke cigarette discontinue nicotine patch the nurse recommends keeps nicotine gum
[2019-10-11] MEDS: MIRTAZAPINE 15 MG TABLET (FP) PO SCH (22:26)
[2019-10-11] MEDS: MELATONIN 5 MG TABLETS PO SCH (22:26)
[2019-10-11] MEDS: THIAMINE HCL 100 MG TABLET (FP) PO SCH (22:26)
[2019-10-11] MEDS: ALBUTEROL SO4 8 GM HFA INHALER IH PRN (22:30)
[2019-10-12] MEDS: GABAPENTIN 300 MG CAPSULE PO SCH ×3 (05:30→22:41)
[2019-10-12] MEDS: hydrOXYzine PAMOATE 25 MG CAPSULE (FP) PO SCH ×5 (05:30→22:41)
[2019-10-12] MEDS: chlordiazePOXIDE HCL 25 MG CAPSULE PO SCH ×4 (05:31→22:41)
[2019-10-12] MEDS: amLODIPine BESYLATE 10 MG TABLET (FP) PO SCH (10:17)
[2019-10-12] MEDS: PRENATAL VITAMINS W/ FOLIC ACID TABLET (FP) PO SCH (10:17)
[2019-10-12] MEDS: NICOTINE POLACRILEX 2 MG GUM BUC PRN (10:17)
[2019-10-12] MEDS: LOSARTAN POTASSIUM 25 MG TABLET PO SCH (10:17)
[2019-10-12] MEDS: FLUTICASONE SALMETEROL PO SCH ×2 (10:18→22:40)
--- NOTE | 2019-10-12 14:31 | PN ---
S CIWA - CIWA Score Nausea/Vomitin-Mild Nausea/No Vomiting Muscle Tremors: 1-None Visible, but [place] Anxiety: 2 Agitation: 2 Paroxysmal Sweats: No Perspiration Orientation: 0-Oriented Tacttile Disturbances: 1-Very Mild Itch/Numbness Auditory Disturbances: 0-None Visual Disturbances: 0-None Headache: 1-Very Mild CIWA-Ar Total Score: 8 B[facility] Progress Note (SOAP) Subjective: alert,irritable,anxious,interrupted sleep,tremor Objective: 10/12/19 14:29 Vital Signs Temperature 97.0 F L 10/12/19 08:56 Pulse Rate 104 H 10/12/19 08:56 Respiratory Rate 18 10/12/19 08:56 Blood Pressure 134/83 10/12/19 08:56 O2 Sat by Pulse Oximetry (%) Laboratory Last Values WBC 5.9 K/mm3 (4.0-10.0) 10/10/19 12:00 RBC 3.89 M/mm3 (3.60-5.2) 10/10/19 12:00 Hgb 11.7 GM/dL (10.7-15.3) 10/10/19 12:00 Hct 35.0 % (32.4-45.2) 10/10/19 12:00 MCV 90.0 fl (80-96) 10/10/19 12:00 MCH 30.0 pg (25.7-33.7) 10/10/19 12:00 MCHC 33.3 g/dl (32.0-36.0) 10/10/19 12:00 RDW 14.6 % (11.6-15.6) 10/10/19 12:00 Plt Count 286 K/MM3 (134-434) D 10/10/19 12:00 MPV 7.5 fl (7.5-11.1) 10/10/19 12:00 Sodium 139 mmol/L (136-145) 10/10/19 12:00 Potassium 4.2 mmol/L (3.5-5.1) 10/10/19 12:00 Chloride 108 mmol/L (98-107) H 10/10/19 12:00 Carbon Dioxide 27 mmol/L (21-32) 10/10/19 12:00 Anion Gap 4 MMOL/L (8-16) L 10/10/19 12:00 BUN 11.2 mg/dL (7-18) 10/10/19 12:00 Creatinine 0.9 mg/dL (0.55-1.3) 10/10/19 12:00 Est GFR (CKD-EPI)AfAm 79.42 10/10/19 12:00 Est GFR (CKD-EPI)NonAf 68.53 10/10/19 12:00 Random Glucose 106 mg/dL (74-106) 10/10/19 12:00 Calcium 8.8 mg/dL (8.5-10.1) 10/10/19 12:00 Total Bilirubin 0.4 mg/dL (0.2-1) 10/10/19 12:00 AST 40 U/L (15-37) H 10/10/19 12:00 ALT 67 U/L (13-61) H 10/10/19 12:00 Alkaline Phosphatase 81 U/L (45-117) 10/10/19 12:00 Total Protein 10.6 g/dl (6.4-8.2) H 10/10/19 12:00 Albumin 3.0 g/dl (3.4-5.0) L 10/10/19 12:00 RPR Titer Nonreactive (NONREACTIVE) 10/10/19 12:00 Assessment: 10/12/19 14:30 withdrawal symptom Plan: continue detox librium regimen
[2019-10-12] MEDS: ALBUTEROL SO4 8 GM HFA INHALER IH PRN ×2 (15:11→22:40)
[2019-10-12] MEDS ORDERED: COLLOIDAL OATMEAL 1 BAR EACH TP PRN (18:07)
[2019-10-12] MEDS: THIAMINE HCL 100 MG TABLET (FP) PO SCH (22:41)
[2019-10-12] MEDS: MELATONIN 5 MG TABLETS PO SCH (22:41)
[2019-10-12] MEDS: MIRTAZAPINE 15 MG TABLET (FP) PO SCH (22:41)
[2019-10-13] MEDS ORDERED: chlordiazePOXIDE HCL 10 MG CAPSULE PO PRN
[2019-10-13] MEDS: hydrOXYzine PAMOATE 25 MG CAPSULE (FP) PO SCH ×5 (06:13→23:04)
[2019-10-13] MEDS: GABAPENTIN 300 MG CAPSULE PO SCH ×3 (06:13→23:04)
[2019-10-13] MEDS: chlordiazePOXIDE HCL 10 MG CAPSULE PO SCH ×3 (06:13→18:00)
[2019-10-13] MEDS: PRENATAL VITAMINS W/ FOLIC ACID TABLET (FP) PO SCH (10:08)
[2019-10-13] MEDS: amLODIPine BESYLATE 10 MG TABLET (FP) PO SCH (10:08)
[2019-10-13] MEDS: LOSARTAN POTASSIUM 25 MG TABLET PO SCH (10:08)
[2019-10-13] MEDS: FLUTICASONE SALMETEROL PO SCH ×2 (10:10→23:45)
--- NOTE | 2019-10-13 13:03 | PN ---
S CIWA - CIWA Score Nausea/Vomitin-No Nausea/No Vomiting Muscle Tremors: None Anxiety: 2 Agitation: 0-Normal Activity Paroxysmal Sweats: 2 Orientation: 0-Oriented Tacttile Disturbances: 0-None Auditory Disturbances: 0-None Visual Disturbances: 0-None Headache: 2-Mild CIWA-Ar Total Score: 6 B[facility] Progress Note (SOAP) Subjective: c/o sweats, anxiety, and headache. Objective: 10/13/19 13:02 Vital Signs 10/13/19 10/13/19 06:37 08:54 Temperature 98.2 F 97.0 F L Pulse Rate 94 H 98 H Respiratory 18 20 Rate Blood Pressure 118/76 144/92 Laboratory Last Values WBC 5.9 K/mm3 (4.0-10.0) 10/10/19 12:00 RBC 3.89 M/mm3 (3.60-5.2) 10/10/19 12:00 Hgb 11.7 GM/dL (10.7-15.3) 10/10/19 12:00 Hct 35.0 % (32.4-45.2) 10/10/19 12:00 MCV 90.0 fl (80-96) 10/10/19 12:00 MCH 30.0 pg (25.7-33.7) 10/10/19 12:00 MCHC 33.3 g/dl (32.0-36.0) 10/10/19 12:00 RDW 14.6 % (11.6-15.6) 10/10/19 12:00 Plt Count 286 K/MM3 (134-434) D 10/10/19 12:00 MPV 7.5 fl (7.5-11.1) 10/10/19 12:00 Sodium 139 mmol/L (136-145) 10/10/19 12:00 Potassium 4.2 mmol/L (3.5-5.1) 10/10/19 12:00 Chloride 108 mmol/L (98-107) H 10/10/19 12:00 Carbon Dioxide 27 mmol/L (21-32) 10/10/19 12:00 Anion Gap 4 MMOL/L (8-16) L 10/10/19 12:00 BUN 11.2 mg/dL (7-18) 10/10/19 12:00 Creatinine 0.9 mg/dL (0.55-1.3) 10/10/19 12:00 Est GFR (CKD-EPI)AfAm 79.42 10/10/19 12:00 Est GFR (CKD-EPI)NonAf 68.53 10/10/19 12:00 Random Glucose 106 mg/dL (74-106) 10/10/19 12:00 Calcium 8.8 mg/dL (8.5-10.1) 10/10/19 12:00 Total Bilirubin 0.4 mg/dL (0.2-1) 10/10/19 12:00 AST 40 U/L (15-37) H 10/10/19 12:00 ALT 67 U/L (13-61) H 10/10/19 12:00 Alkaline Phosphatase 81 U/L (45-117) 10/10/19 12:00 Total Protein 10.6 g/dl (6.4-8.2) H 10/10/19 12:00 Albumin 3.0 g/dl (3.4-5.0) L 10/10/19 12:00 RPR Titer Nonreactive (NONREACTIVE) 10/10/19 12:00 Labs noted. Assessment: 10/13/19 13:03 AOX3, in no acute respiratory distress. Full ROM, ambulating in the unit. Withdrawal symptoms. Plan: Continue detox.
[2019-10-13] MEDS ORDERED: SODIUM PHOSPHATE/NA BIPHOS 133 ML ENEMA PR ONE (18:15)
[2019-10-13] MEDS ORDERED: POLYETHYLENE GLYCOL 3350 119 GM BTL PO PRN (22:00)
[2019-10-13] MEDS: MIRTAZAPINE 15 MG TABLET (FP) PO SCH (23:04)
[2019-10-13] MEDS: THIAMINE HCL 100 MG TABLET (FP) PO SCH (23:04)
[2019-10-13] MEDS: MELATONIN 5 MG TABLETS PO SCH (23:45)
[2019-10-14] MEDS: chlordiazePOXIDE HCL 10 MG CAPSULE PO SCH ×3 (00:20→18:33)
[2019-10-14] MEDS: GABAPENTIN 300 MG CAPSULE PO SCH ×3 (06:20→22:13)
[2019-10-14] MEDS: hydrOXYzine PAMOATE 25 MG CAPSULE (FP) PO SCH ×5 (06:20→22:13)
[2019-10-14] MEDS: ALBUTEROL SO4 8 GM HFA INHALER IH PRN ×2 (06:26→22:13)
[2019-10-14] MEDS: PRENATAL VITAMINS W/ FOLIC ACID TABLET (FP) PO SCH (10:18)
[2019-10-14] MEDS: LOSARTAN POTASSIUM 25 MG TABLET PO SCH (10:18)
[2019-10-14] MEDS: amLODIPine BESYLATE 10 MG TABLET (FP) PO SCH (10:20)
[2019-10-14] MEDS: FLUTICASONE SALMETEROL PO SCH ×2 (10:21→22:13)
--- NOTE | 2019-10-14 12:52 | PN ---
S CIWA - CIWA Score Nausea/Vomitin-No Nausea/No Vomiting Muscle Tremors: 1-None Visible, but [place] Anxiety: 2 Agitation: 0-Normal Activity Paroxysmal Sweats: No Perspiration Orientation: 0-Oriented Tacttile Disturbances: 0-None Auditory Disturbances: 0-None Visual Disturbances: 0-None Headache: 0-None Present CIWA-Ar Total Score: 3 [facility] Progress Note (SOAP) Subjective: 63 years old female admitted on 10/13/19 for alcohol withdrawal sx management treating with libirum detox regiment feeling better today less tremor mild anxiety discuss aftercare with staff bl[place] praveena [place] patient requests to be discharge a day late instead of 10/15/19 encourage the patient step up to a next level of care Objective: 10/14/19 12:37 Vital Signs Temperature 97.7 F 10/14/19 08:36 Pulse Rate 98 H 10/14/19 08:36 Respiratory Rate 20 10/14/19 08:36 Blood Pressure 129/80 10/14/19 08:36 O2 Sat by Pulse Oximetry (%) Laboratory Last Values WBC 5.9 K/mm3 (4.0-10.0) 10/10/19 12:00 RBC 3.89 M/mm3 (3.60-5.2) 10/10/19 12:00 Hgb 11.7 GM/dL (10.7-15.3) 10/10/19 12:00 Hct 35.0 % (32.4-45.2) 10/10/19 12:00 MCV 90.0 fl (80-96) 10/10/19 12:00 MCH 30.0 pg (25.7-33.7) 10/10/19 12:00 MCHC 33.3 g/dl (32.0-36.0) 10/10/19 12:00 RDW 14.6 % (11.6-15.6) 10/10/19 12:00 Plt Count 286 K/MM3 (134-434) D 10/10/19 12:00 MPV 7.5 fl (7.5-11.1) 10/10/19 12:00 Sodium 139 mmol/L (136-145) 10/10/19 12:00 Potassium 4.2 mmol/L (3.5-5.1) 10/10/19 12:00 Chloride 108 mmol/L (98-107) H 10/10/19 12:00 Carbon Dioxide 27 mmol/L (21-32) 10/10/19 12:00 Anion Gap 4 MMOL/L (8-16) L 10/10/19 12:00 BUN 11.2 mg/dL (7-18) 10/10/19 12:00 Creatinine 0.9 mg/dL (0.55-1.3) 10/10/19 12:00 Est GFR (CKD-EPI)AfAm 79.42 10/10/19 12:00 Est GFR (CKD-EPI)NonAf 68.53 10/10/19 12:00 Random Glucose 106 mg/dL (74-106) 10/10/19 12:00 Calcium 8.8 mg/dL (8.5-10.1) 10/10/19 12:00 Total Bilirubin 0.4 mg/dL (0.2-1) 10/10/19 12:00 AST 40 U/L (15-37) H 10/10/19 12:00 ALT 67 U/L (13-61) H 10/10/19 12:00 Alkaline Phosphatase 81 U/L (45-117) 10/10/19 12:00 Total Protein 10.6 g/dl (6.4-8.2) H 10/10/19 12:00 Albumin 3.0 g/dl (3.4-5.0) L 10/10/19 12:00 RPR Titer Nonreactive (NONREACTIVE) 10/10/19 12:00 lab noted Assessment: 10/14/19 12:52 alcohol withdrawal Plan: librium regiment
[2019-10-14] MEDS: MELATONIN 5 MG TABLETS PO SCH (22:12)
[2019-10-14] MEDS: MIRTAZAPINE 15 MG TABLET (FP) PO SCH (22:13)
[2019-10-14] MEDS: THIAMINE HCL 100 MG TABLET (FP) PO SCH (22:13)
[2019-10-15] MEDS ORDERED: chlordiazePOXIDE HCL 10 MG CAPSULE PO ONE (05:00)
[2019-10-15] MEDS: GABAPENTIN 300 MG CAPSULE PO SCH ×3 (05:28→22:19)
[2019-10-15] MEDS: hydrOXYzine PAMOATE 25 MG CAPSULE (FP) PO SCH ×5 (07:07→22:19)
--- NOTE | 2019-10-15 09:29 | PN ---
S CIWA - CIWA Score Nausea/Vomitin-No Nausea/No Vomiting Muscle Tremors: None Anxiety: 1-Mildly Anxious Agitation: 0-Normal Activity Paroxysmal Sweats: No Perspiration Orientation: 0-Oriented Tacttile Disturbances: 0-None Auditory Disturbances: 0-None Visual Disturbances: 0-None Headache: 0-None Present CIWA-Ar Total Score: 1 S Progress Note (SOAP) Subjective: 63 years old female admitted on 10/10/19 for alcohol withdrawal sx management treating with librium detox regiment Ms Bermudez has completed the librium regiment today a safe transition to [facility] on 10/16/19 with transportation patient participates in groups and meetings while in detox determines to maintain sober through aftercare at the [facility] where she believes perfect fit for her current circumstances expert medical writer and counselor met with the patient prefers not [place] at this time Objective: 10/15/19 09:45 Vital Signs Temperature 97.1 F L 10/15/19 06:51 Pulse Rate 89 10/15/19 06:51 Respiratory Rate 18 10/15/19 06:51 Blood Pressure 123/84 10/15/19 06:51 O2 Sat by Pulse Oximetry (%) Laboratory Last Values WBC 5.9 K/mm3 (4.0-10.0) 10/10/19 12:00 RBC 3.89 M/mm3 (3.60-5.2) 10/10/19 12:00 Hgb 11.7 GM/dL (10.7-15.3) 10/10/19 12:00 Hct 35.0 % (32.4-45.2) 10/10/19 12:00 MCV 90.0 fl (80-96) 10/10/19 12:00 MCH 30.0 pg (25.7-33.7) 10/10/19 12:00 MCHC 33.3 g/dl (32.0-36.0) 10/10/19 12:00 RDW 14.6 % (11.6-15.6) 10/10/19 12:00 Plt Count 286 K/MM3 (134-434) D 10/10/19 12:00 MPV 7.5 fl (7.5-11.1) 10/10/19 12:00 Sodium 139 mmol/L (136-145) 10/10/19 12:00 Potassium 4.2 mmol/L (3.5-5.1) 10/10/19 12:00 Chloride 108 mmol/L (98-107) H 10/10/19 12:00 Carbon Dioxide 27 mmol/L (21-32) 10/10/19 12:00 Anion Gap 4 MMOL/L (8-16) L 10/10/19 12:00 BUN 11.2 mg/dL (7-18) 10/10/19 12:00 Creatinine 0.9 mg/dL (0.55-1.3) 10/10/19 12:00 Est GFR (CKD-EPI)AfAm 79.42 10/10/19 12:00 Est GFR (CKD-EPI)NonAf 68.53 10/10/19 12:00 Random Glucose 106 mg/dL (74-106) 10/10/19 12:00 Calcium 8.8 mg/dL (8.5-10.1) 10/10/19 12:00 Total Bilirubin 0.4 mg/dL (0.2-1) 10/10/19 12:00 AST 40 U/L (15-37) H 10/10/19 12:00 ALT 67 U/L (13-61) H 10/10/19 12:00 Alkaline Phosphatase 81 U/L (45-117) 10/10/19 12:00 Total Protein 10.6 g/dl (6.4-8.2) H 10/10/19 12:00 Albumin 3.0 g/dl (3.4-5.0) L 10/10/19 12:00 RPR Titer Nonreactive (NONREACTIVE) 10/10/19 12:00 lab noted Assessment: 10/15/19 09:46 alcohol withdrawal Plan: librium regiment plan and implement safe discharge on 10/16/19
[2019-10-15] MEDS: PRENATAL VITAMINS W/ FOLIC ACID TABLET (FP) PO SCH (10:14)
[2019-10-15] MEDS: LOSARTAN POTASSIUM 25 MG TABLET PO SCH (10:15)
[2019-10-15] MEDS: FLUTICASONE SALMETEROL PO SCH ×2 (10:15→22:19)
[2019-10-15] MEDS: amLODIPine BESYLATE 10 MG TABLET (FP) PO SCH (10:15)
[2019-10-15] MEDS: ALBUTEROL SO4 8 GM HFA INHALER IH PRN ×2 (10:16→15:53)
[2019-10-15] MEDS: MELATONIN 5 MG TABLETS PO SCH (22:19)
[2019-10-15] MEDS: THIAMINE HCL 100 MG TABLET (FP) PO SCH (22:19)
[2019-10-15] MEDS: MIRTAZAPINE 15 MG TABLET (FP) PO SCH (22:20)
[2019-10-16] MEDS: hydrOXYzine PAMOATE 25 MG CAPSULE (FP) PO SCH ×2 (05:45→10:13)
[2019-10-16] MEDS: GABAPENTIN 300 MG CAPSULE PO SCH (05:45)
[2019-10-16 09:18] VITALS: BP 133/76; PULSE 86; TEMP 97.3
[2019-10-16] MEDS: FLUTICASONE SALMETEROL PO SCH (10:13)
[2019-10-16] MEDS: LOSARTAN POTASSIUM 25 MG TABLET PO SCH (10:13)
[2019-10-16] MEDS: PRENATAL VITAMINS W/ FOLIC ACID TABLET (FP) PO SCH (10:13)
[2019-10-16] MEDS: amLODIPine BESYLATE 10 MG TABLET (FP) PO SCH (10:13)
--- NOTE | 2019-10-16 16:05 | DS ---
[facility] Detox Discharge Summary Admission Date: 10/10/19 Discharge Date: 10/16/19 - History Present History: Alcohol Dependence Additional Comments: 63 years old female admitted on 10/10/19 for alcohol withdrawal sx management treated with librium detox regiment Ms Bermudez has completed the librium regiment and is tolerated well seen by psychiatrist resume remeron and gabapentin alert oriented x 3 cardiac s1s2 regular rate rhythm respiratory clear lungs bilaterally on auscultation extremities full range of motion Pertinent Past History: time for discharge 32 minutes - Physical Exam Results Vital Signs: Vital Signs Temperature 97.3 F L 10/16/19 09:00 Pulse Rate 86 10/16/19 09:00 Respiratory Rate 18 10/16/19 09:00 Blood Pressure 133/76 10/16/19 09:00 O2 Sat by Pulse Oximetry (%) Pertinent Admission Physical Exam Findings: alcohol withdrawal Laboratory Last Values WBC 5.9 K/mm3 (4.0-10.0) 10/10/19 12:00 RBC 3.89 M/mm3 (3.60-5.2) 10/10/19 12:00 Hgb 11.7 GM/dL (10.7-15.3) 10/10/19 12:00 Hct 35.0 % (32.4-45.2) 10/10/19 12:00 MCV 90.0 fl (80-96) 10/10/19 12:00 MCH 30.0 pg (25.7-33.7) 10/10/19 12:00 MCHC 33.3 g/dl (32.0-36.0) 10/10/19 12:00 RDW 14.6 % (11.6-15.6) 10/10/19 12:00 Plt Count 286 K/MM3 (134-434) D 10/10/19 12:00 MPV 7.5 fl (7.5-11.1) 10/10/19 12:00 Sodium 139 mmol/L (136-145) 10/10/19 12:00 Potassium 4.2 mmol/L (3.5-5.1) 10/10/19 12:00 Chloride 108 mmol/L (98-107) H 10/10/19 12:00 Carbon Dioxide 27 mmol/L (21-32) 10/10/19 12:00 Anion Gap 4 MMOL/L (8-16) L 10/10/19 12:00 BUN 11.2 mg/dL (7-18) 10/10/19 12:00 Creatinine 0.9 mg/dL (0.55-1.3) 10/10/19 12:00 Est GFR (CKD-EPI)AfAm 79.42 10/10/19 12:00 Est GFR (CKD-EPI)NonAf 68.53 10/10/19 12:00 Random Glucose 106 mg/dL (74-106) 10/10/19 12:00 Calcium 8.8 mg/dL (8.5-10.1) 10/10/19 12:00 Total Bilirubin 0.4 mg/dL (0.2-1) 10/10/19 12:00 AST 40 U/L (15-37) H 10/10/19 12:00 ALT 67 U/L (13-61) H 10/10/19 12:00 Alkaline Phosphatase 81 U/L (45-117) 10/10/19 12:00 Total Protein 10.6 g/dl (6.4-8.2) H 10/10/19 12:00 Albumin 3.0 g/dl (3.4-5.0) L 10/10/19 12:00 RPR Titer Nonreactive (NONREACTIVE) 10/10/19 12:00 lab noted Vital Signs Temperature 97.3 F L 10/16/19 09:00 Pulse Rate 86 10/16/19 09:00 Respiratory Rate 18 10/16/19 09:00 Blood Pressure 133/76 10/16/19 09:00 O2 Sat by Pulse Oximetry (%) - Treatment Hospital Course: Detox Protocol Followed, Detoxed Safely, Responded well, Discharged Condition Good, Rehab Referral Accepted Patient has Accepted a Rehab Referral to: [facility] - Medication Discharge Medications: Ambulatory Orders Albuterol Sulfate Inhaler - 2 puff PO PRN PRN 06/27/19 Fluticasone-Salmeterol 500-50 1 puff PO BID 06/27/19 Losartan Potassium 25 mg PO DAILY 06/27/19 Amlodipine Besylate 10 mg PO DAILY 10/10/19 Ergocalciferol [Drisdol -] 50,000 units PO WEEKLY 10/10/19 Gabapentin 600 mg PO TID 10/10/19 Mirtazapine 15 mg PO HS 10/10/19 Multivitamin [One-Daily Multi-Vitamin] 1 each PO DAILY 10/10/19 Vitamin B Complex 1 each PO DAILY 10/10/19 - Diagnosis (1) Alcohol dependence with withdrawal, uncomplicated Status: Acute (2) Asthma Status: Chronic Qualifiers: Asthma severity: mild Asthma persistence: intermittent Asthma complication type: uncomplicated Qualified Code(s): J45.20 - Mild intermittent asthma, uncomplicated (3) COPD (chronic obstructive pulmonary disease) Status: Chronic Qualifiers: COPD type: emphysema Emphysema type: unilateral Qualified Code(s): J43.0 - Unilateral pulmonary emphysema [MacLeod's syndrome] (4) GERD (gastroesophageal reflux disease) Status: Chronic Qualifiers: Esophagitis presence: esophagitis presence not specified Qualified Code(s): K21.9 - Gastro-esophageal reflux disease without esophagitis (5) HIV (human immunodeficiency virus infection) Status: Chronic Qualifiers: HIV symptom status: asymptomatic Qualified Code(s): Z21 - Asymptomatic human immunodeficiency virus [HIV] infection status (6) HTN (hypertension) Status: Chronic Qualifiers: Hypertension type: essential hypertension Qualified Code(s): I10 - Essential (primary) hypertension (7) History of hepatitis C Status: Chronic (8) Nicotine dependence Status: Acute Qualifiers: Nicotine product type: cigarettes Substance use status: in withdrawal Qualified Code(s): F17.213 - Nicotine dependence, cigarettes, with withdrawal (9) Substance induced mood disorder Status: Suspected - AMA Did Patient Leave Against Medical Advice: No CIWA Score - CIWA Score Nausea/Vomitin-No Nausea/No Vomiting Muscle Tremors: None Anxiety: 0-No Anxiety, at Ease Agitation: 0-Normal Activity Paroxysmal Sweats: No Perspiration Orientation: 0-Oriented Tacttile Disturbances: 0-None Auditory Disturbances: 0-None Visual Disturbances: 0-None Headache: 0-None Present CIWA-Ar Total Score: 0
== END 2019-10-16 11:51 | disposition other institution (70) | DRG 774 ==
LOC: YASAS 10:25 → Y3N 12:02
PROVIDERS: ADMIT Allergy & Immunology; ATTEND Allergy & Immunology
PROC: HZ2ZZZZ Detoxification Services for Substance Abuse Treatment (ICD-10-PCS; principal; 2019-10-10)
DX: F10.230 Alcohol dependence with withdrawal, uncomplicated (principal); F14.20 Cocaine dependence, uncomplicated; F12.20 Cannabis dependence, uncomplicated; F17.210 Nicotine dependence, cigarettes, uncomplicated; F19.24 Other psychoactive substance dependence with psychoactive substance-induced mood disorder; F32.9 Major depressive disorder, single episode, unspecified; Z21 Asymptomatic human immunodeficiency virus [HIV] infection status; G47.00 Insomnia, unspecified; I10 Essential (primary) hypertension; J43.0 Unilateral pulmonary emphysema [MacLeod's syndrome]; J45.20 Mild intermittent asthma, uncomplicated; K21.9 Gastro-esophageal reflux disease without esophagitis; B18.2 Chronic viral hepatitis C; M79.7 Fibromyalgia; M12.9 Arthropathy, unspecified; M41.9 Scoliosis, unspecified; R63.8 Other symptoms and signs concerning food and fluid intake; Z56.0 Unemployment, unspecified; Z88.0 Allergy status to penicillin
CPT/HCPCS: 36415; 80053; 85027; 86593